=== PATIENT | female | born 1980 | race Caucasian/White ===

== ENCOUNTER 2023-12-08 17:10 | Emergency (ER) | payer MEDICAID ==
[~2023-12-08] VITALS: Ht 157.5 cm; Wt 91.0 kg
[2023-12-08 17:24] VITALS: TEMP 98.2; O2SAT 100
[2023-12-08 17:57] LABS: BASOPHILS % 0.5 % (0.0-2.0); EOSINOPHILS % 1.7 % (0.0-5.0); HEMATOCRIT. 38.3 % (36.0-48.0); HEMOGLOBIN. 12.2 g/dL (12.0-16.0); LYMPHOCYTES % 28.9 % (20.0-50.0); MEAN CORPUSCULAR HEMOGLOBIN 26.8 pg (28.0-32.0); MEAN CORPUSCULAR HGB CONC 31.8 g/dL (31.0-37.0); MEAN CORPUSCULAR VOLUME 84.2 fL (81.0-99.0); MEAN PLATELET VOLUME 9.1 fl (7.4-10.4); MONOCYTES % 7.6 % (2.0-8.0); NEUTROPHILS % 61.3 % (40.0-76.0); PLATELET 248 x1000/uL (130-400); RED BLOOD CELL COUNT 4.55 mill/uL (4.2-5.4); WHITE BLOOD COUNT 7.3 x1000/uL (4.5-11.0)
[2023-12-08 18:07] LABS: CHLORIDE 106 mEq/L (98-107); POTASSIUM 3.6 mEq/L (3.5-5.1); SODIUM 139 mEq/L (136-145)
[2023-12-08 18:08] LABS: CARBON DIOXIDE 26 mEq/L (21-32)
[2023-12-08 18:09] LABS: CALCIUM 9.4 mg/dL (8.7-10.4)
[2023-12-08 18:13] LABS: GLUCOSE 95 mg/dL (70-105)
[2023-12-08 18:14] LABS: TROPONIN I HIGH SENSITIVITY < 4 ng/L (3.0-34); UREA NITROGEN BLOOD 9 mg/dL (9-23)
[2023-12-08 18:15] LABS: ALANINE AMINOTRANSFERASE 11 IU/L (10-49); ALBUMIN 4.5 g/dL (3.2-4.8); ASPARTATE AMINOTRANSFERASE 20 IU/L (<34)
[2023-12-08 18:16] LABS: BILIRUBIN TOTAL 0.2 mg/dL (0.1-1.0); PROTEIN TOTAL 7.6 g/dL (6.0-8.3)
[2023-12-08 20:49] VITALS: BP 125/74; PULSE 73; RESP 16
== END 2023-12-08 20:50 | disposition home or self-care (01) ==
LOC: ER 17:10
DX: R07.89 Other chest pain (principal); Z98.890 Other specified postprocedural states
CPT/HCPCS: 80053; 83880; 85025; 84484; 36415; 71045; 93005; 99285; Z7610

== ENCOUNTER 2024-01-27 15:08 | Emergency (ER) | payer MEDICAID ==
[~2024-01-27] VITALS: Ht 172.7 cm; Wt 96.0 kg
[2024-01-27 15:10] VITALS: O2SAT 99
[2024-01-27 16:07] LABS: BASOPHILS % 1.2 % (0.0-2.0); EOSINOPHILS % 0.4 % (0.0-5.0); HEMATOCRIT. 37.9 % (36.0-48.0); LYMPHOCYTES % 14.2 % (20.0-50.0); MEAN CORPUSCULAR HEMOGLOBIN 26.2 pg (28.0-32.0); MEAN CORPUSCULAR HGB CONC 31.6 g/dL (31.0-37.0); MEAN CORPUSCULAR VOLUME 82.9 fL (81.0-99.0); MEAN PLATELET VOLUME 9.2 fl (7.4-10.4); MONOCYTES % 6.6 % (2.0-8.0); NEUTROPHILS % 77.6 % (40.0-76.0); PLATELET 202 x1000/uL (130-400); RED BLOOD CELL COUNT 4.58 mill/uL (4.2-5.4); RED CELL DISTRIBUTION WIDTH 16.2 % (11.6-14.6); WHITE BLOOD COUNT 9.1 x1000/uL (4.5-11.0)
[2024-01-27 16:14] VITALS: BP 135/78; PULSE 65; RESP 18; TEMP 97.7
[2024-01-27 16:14] LABS: CHLORIDE 109 mEq/L (98-107); POTASSIUM 3.9 mEq/L (3.5-5.1); SODIUM 138 mEq/L (136-145)
[2024-01-27] MEDS: KETOROLAC 30MG/ML VIAL IV STA (16:14)
[2024-01-27] MEDS: ACETAMINOPHEN 325MG TABLET PO STA (16:14)
[2024-01-27] MEDS: SODIUM CHLORIDE 0.9% 1,000 ML IV ONE (16:14)
[2024-01-27 16:15] LABS: CALCIUM 9.5 mg/dL (8.7-10.4); CARBON DIOXIDE 23 mEq/L (21-32)
[2024-01-27] MEDS ORDERED: ONDANSETRON HCL 4MG/2ML INJ IV ONE (16:15)
[2024-01-27] MEDS ORDERED: MORPHINE SULFATE 4 MG/ML INJ (FOR IV/IM USE) IV ONE (16:15)
[2024-01-27 16:20] LABS: GLUCOSE 116 mg/dL (70-105); HCG SCREEN NEGATIVE; UREA NITROGEN BLOOD 10 mg/dL (9-23)
[2024-01-27 16:22] LABS: ALANINE AMINOTRANSFERASE 14 IU/L (10-49); ALBUMIN 4.5 g/dL (3.2-4.8); ASPARTATE AMINOTRANSFERASE 21 IU/L (<34); BILIRUBIN DIRECT 0.1 mg/dL (<=3.0); BILIRUBIN TOTAL 0.4 mg/dL (0.1-1.0); PROTEIN TOTAL 7.1 g/dL (6.0-8.3)
[2024-01-27] MEDS ORDERED: PROM25TA13 MT (21:14)
[2024-01-27] MEDS ORDERED: HYDR-4001 MT (21:14)
[2024-01-27] MEDS ORDERED: CIPR-263 MT (21:14)
[2024-01-27] MEDS ORDERED: IBUP-1523 MT (21:14)
[2024-01-27] MEDS ORDERED: TOPUD MT (21:15)
== END 2024-01-27 22:07 | disposition home or self-care (01) ==
LOC: ER 15:08
DX: N23 Unspecified renal colic (principal); Z98.890 Other specified postprocedural states
CPT/HCPCS: 80076; 80048; 81025; 84703; 83690; 85025; 36415; 74176; 96361; 96374; 99285; J1885; J2405; J2270; J7030; Z7610

== ENCOUNTER 2024-12-11 19:40 | Emergency (ER) | payer MEDICAID ==
[~2024-12-11] VITALS: Ht 157.5 cm; Wt 91.0 kg
[~2024-12-11 19:40] MED LIST: CIPR-263 MT; HYDR-4001 MT; IBUP-1523 MT; PROM25TA13 MT; TOPUD MT
[2024-12-11 20:10] VITALS: O2SAT 100
[2024-12-11] MEDS ORDERED: ACET-2708 MT (21:56)
[2024-12-11] MEDS: ACETAMINOPHEN 325MG TABLET PO ONE (22:17)
[2024-12-11 23:02] VITALS: BP 126/70; PULSE 74; RESP 16; TEMP 36.7; O2SAT 100
== END 2024-12-11 23:04 | disposition home or self-care (01) ==
LOC: ER 19:40
DX: M25.562 Pain in left knee (principal); Z98.890 Other specified postprocedural states; Z79.899 Other long term (current) drug therapy
CPT/HCPCS: 73562; 99283; Z7610; L1830